=== PATIENT | female | born 1975 | race Caucasian/White ===

== ENCOUNTER 2021-07-26 11:25 | Outpatient (CLI) | payer OTHER | END 2021-07-26 11:26 | disposition home or self-care (01) | LOC: BICRAD 11:25 | PROVIDERS: ATTEND Family Medicine | DX: M79.645 Pain in left finger(s) (principal); M79.644 Pain in right finger(s) ==

== ENCOUNTER 2021-12-30 15:20 | Outpatient (CLI) | payer OTHER | END 2021-12-30 15:21 | disposition home or self-care (01) | LOC: BICRAD 15:20 | PROVIDERS: ATTEND Family Medicine | DX: R05.9 Cough, unspecified (principal) | CPT/HCPCS: 71046 ==